=== PATIENT | female | born 1960 | race Caucasian/White ===

== ENCOUNTER 2021-09-03 09:39 | Emergency (ER) | payer BC ==
[~2021-09-03] VITALS: Ht 170.2 cm; Wt 89.4 kg
[2021-09-03] MEDS ORDERED: ZOFRAN ODT 4 MG4 MG SL (12:23)
[2021-09-03] MEDS ORDERED: PEPCID20 MG PO (12:23)
[2021-09-03] MEDS ORDERED: BENTYL 10MG CAP10 MG PO (12:23)
== END 2021-09-03 13:13 | disposition home or self-care (01) ==
LOC: ER1 09:39
DX: U07.1 COVID-19 (principal); Z23 Encounter for immunization
CPT/HCPCS: 99283; M0245

== ENCOUNTER 2021-09-07 15:11 | Inpatient (IN) | payer BC ==
[~2021-09-07] VITALS: Ht 170.2 cm; Wt 89.4 kg
[~2021-09-07 15:11] MED LIST: BENTYL 10MG CAP10 MG PO; PEPCID20 MG PO; PREDNISONE10 MG PO; ZOFRAN ODT 4 MG4 MG SL
[2021-09-07 16:49] LABS: HEMOGLOBIN 13.9 gm/dl (12.3-15.3); RED BLOOD COUNT 4.56 M/UL (4.00-5.10); WHITE BLOOD COUNT 7.9 K/UL (4.5-11.0)
[2021-09-07 17:08] LABS: BUN/CREATININE RATIO 17 (0-10)
[2021-09-09 03:33] LABS: HEMOGLOBIN 12.4 gm/dl (12.3-15.3); RED BLOOD COUNT 4.17 M/UL (4.00-5.10); WHITE BLOOD COUNT 6.3 K/UL (4.5-11.0)
[2021-09-09 03:51] LABS: BUN/CREATININE RATIO 18 (0-10)
[2021-09-09] MEDS ORDERED: DECADRON6 MG PO (09:45)
[2021-09-09 12:14] LABS: HBSAG SCREEN Negative (Negative); HEP A AB, IGM Negative (Negative); HEP B CORE AB, IGM Negative (Negative); HEP C VIRUS AB <0.1 (0.0-0.9)
== END 2021-09-09 12:46 | disposition home or self-care (01) | DRG 177 ==
LOC: ER1 15:11 → CDU 23:46 → PROG CARE 09-08 14:13
PROVIDERS: Physician Assistant; ADMIT Internal Medicine
PROC: 3E0333Z Introduction of Anti-inflammatory into Peripheral Vein, Percutaneous Approach (ICD-10-PCS; principal; 2021-09-07)
PROC: 8E0ZXY6 Isolation (ICD-10-PCS; 2021-09-08)
DX: U07.1 COVID-19 (principal); J12.82 Pneumonia due to coronavirus disease 2019; J96.01 Acute respiratory failure with hypoxia; E87.6 Hypokalemia; R74.01 Elevation of levels of liver transaminase levels; Z53.29 Procedure and treatment not carried out because of patient's decision for other reasons; Z82.49 Family history of ischemic heart disease and other diseases of the circulatory system; Z99.81 Dependence on supplemental oxygen; Z90.49 Acquired absence of other specified parts of digestive tract
CPT/HCPCS: 36415; 36600; 71045; 80053; 80074; 82803; 83735; 84439; 84443; 85025; 85379; 86140; 93005; 94640; 94760; 96365; 96366; 99285; J0456; J0696; J1100; J1650; J7030; Q9967; U0002